=== PATIENT | female | born 1940 | race Caucasian/White ===

== ENCOUNTER 2017-09-03 20:26 | Emergency (ER) | payer OTHER ==
[~2017-09-03] VITALS: Ht 157.5 cm; Wt 99.8 kg
[~2017-09-03 20:26] MED LIST: CARAFATE SU1 G/10 ML PO; HYZAAR 100-251 UDTAB; HYZAAR 100-251 UDTAB PO; MEGESTROL ACETA40 MG PO; PROTONIX40 MG PO; SYNTHROID50 MCG; SYNTHROID75 MCG PO; ZYRTEC5 M1 PO
[2017-09-03] MEDS ORDERED: ZANTAC300 MG (20:42)
[2017-09-03] MEDS ORDERED: SINGULAIR 4MG4 MG (20:43)
[2017-09-04] MEDS ORDERED: ZOFRAN4 MG PO (03:58)
[2017-09-04] MEDS ORDERED: LEVSIN/SL0.125 MG SL (03:58)
== END 2017-09-04 03:55 | disposition home or self-care (01) ==
LOC: ER 20:26
DX: R10.32 Left lower quadrant pain (principal)

== ENCOUNTER 2019-03-03 10:45 | Day surgery (SDC) | payer OTHER ==
[~2019-03-03 10:45] MED LIST changes: +LEVSIN/SL0.125 MG SL; +SINGULAIR 4MG4 MG; +ZANTAC300 MG; +ZOFRAN4 MG PO
== END 2019-03-03 14:59 | disposition home or self-care (01) ==
LOC: AMB-ENDOS 10:45
DX: K57.30 Diverticulosis of large intestine without perforation or abscess without bleeding (principal)